=== PATIENT | female | born 1990 | race Caucasian/White ===

== ENCOUNTER 2018-01-08 18:59 | Emergency (ER) | payer OTHER ==
[~2018-01-08] VITALS: Ht 152.4 cm; Wt 86.2 kg
== END 2018-01-08 20:11 | disposition home or self-care (01) ==
LOC: ED 18:59
DX: S60.221A Contusion of right hand, initial encounter (principal); Z88.1 Allergy status to other antibiotic agents; W23.0XXA Caught, crushed, jammed, or pinched between moving objects, initial encounter; Y93.89 Activity, other specified; Y92.89 Other specified places as the place of occurrence of the external cause; Y99.8 Other external cause status

== ENCOUNTER 2023-11-03 22:39 | Emergency (ER) | payer BC, MEDICAID ==
[~2023-11-03] VITALS: Ht 152.4 cm; Wt 90.7 kg
== END 2023-11-03 23:14 | disposition home or self-care (01) ==
LOC: ED 22:39
DX: O36.8120 Decreased fetal movements, second trimester, not applicable or unspecified (principal); Z88.1 Allergy status to other antibiotic agents; Z3A.24 24 weeks gestation of pregnancy